=== PATIENT | female | born 1995 | race Caucasian/White ===

== ENCOUNTER 2017-07-20 14:05 | Outpatient (CLI) | payer MEDICAID ==
--- NOTE | 2017-08-20 10:11 | P.PCN ---
Date of Procedure: 08/20/17 Preoperative Diagnosis: Unwanted Contraceptive Implant Postoperative Diagnosis: Unwanted contraceptive implant Procedure(s) Performed: Removal of Nexplanon contraceptive implant Anesthesia: local Surgeon: Stan Doran Estimated Blood Loss (ml): 1 Pathology: none sent Condition: stable Disposition: same day Indications for Procedure: This was a 21-year-old G0 with an LMP of 08/12/2017 who is requesting the removal of her Nexplanon contraceptive implant. The implant was placed on 10/09/2016. This was her 2nd implant. Her 1st implant was removed on the day of her reinsertion. She has had some long periods with this implant. She has also experienced more acne. She would like to have it removed and plans on using condoms for control. She declines any other method of control at this time. Operative Findings: A 4 cm implant was removed in its entirety from the left arm. Description of Procedure: The procedure including possible risks was discussed with the patient and her mother. The Nexplanon implant was located in the left arm between the biceps and triceps muscles. The implant was superficial. The distal end was marked. Betadine was used to prep the area. Approximately 1 mL of 1% lidocaine was used for local anesthesia. After determination of adequate anesthesia, a small incision was made at the distal end of the implant with an 11 blade. The end of the implant was identified and removed with a hemostat. The implant was removed in its entirety without difficulty. The implant was measured and it measured 4 cm. Pressure was applied to the incision to obtain hemostasis. Antibiotic ointment was applied and a steri-strip was applied. A gauze dressing was applied. The patient tolerated the procedure well. The estimated blood loss was 1ml. There were no complications.
== END 2017-08-20 | disposition home or self-care (01) ==
LOC: CANPRECLI → WWCWWP 08-20 08:55
PROVIDERS: ATTEND Obstetrics & Gynecology
DX: Z53.9 Procedure and treatment not carried out, unspecified reason (principal)

== ENCOUNTER → 2019-01-18 | Outpatient (CLI) | payer MEDICAID ==
[2019-01-18 10:00] VITALS: BP 102/69; PULSE 81; RESP 20; TEMP 98.9; BMI 20.5
--- NOTE | 2019-01-18 10:41 | P.HPOB ---
History of Present Illness H&P Date: 01/18/19 Chief Complaint: The patient is here for her routine gynecologic exam and for control. This is a 23 year old G0 with an LMP of 12/17/2018. The patient is without gynecologic complaints. She has been using condoms for control. She is requesting to be started on control pills for control. She previously used control pills, but she states she was not as mature and had some difficulty taking the pill every day. She believes this would not be a problem at this time. She had a Nexplanon implant removed on 08/20/2017 because of menstrual irregularity. Her menses have been normal since then. Review of Systems The patient's weight has been stable over the last year. She denies respiratory, cardiac, or G.I. problems. 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 History of Any Multi-Drug Resistant Organisms: None Reported Past Surgical History: No Surgical Hx Reported Past Psychological History: No Psychological Hx Reported Smoking Status: Never smoker Past Alcohol Use History: Occasional (6 per month) Past Drug Use History: None Reported Additional History: She has been with her boyfriend since 2008. 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 - Past Family History Mother Family Medical History: No Reported History Medications and Allergies Home Medications Medication Instructions Recorded Confirmed Type No Known Home Medications 01/18/19 01/18/19 History Allergies Allergy/AdvReac Type Severity Reaction Status Date / Time No Known Allergies Allergy Unverified 01/18/19 09:56 Exam Vital Signs Temp Pulse Resp BP Pulse Ox 01/18/19 09:57 98.9 F 81 20 102/69 100 Intake and Output 01/17/19 01/18/19 01/18/19 22:59 06:59 14:59 Other: Weight 61.235 kg Height 5'8", weight 135 pounds, BMI 20.5. This is a well-developed well-nourished white female who is alert and oriented times 3 in no acute distress. HEENT: Within normal limits. NECK: Supple without mass or thyromegaly. CHEST AND LUNGS: Clear to auscultation. HEART: Regular rate and rhythm. BREASTS: Are without mass or discharge. AXILLARY EXAM: Negative for adenopathy. BACK: Negative for CVA tenderness. ABDOMEN: Soft, nontender, without palpable masses. PELVIC EXAM: Normal external genitalia. Cervix and vagina appear normal. There is no unusual discharge. There is no cervical motion tenderness. There is no evidence of prolapse. The uterus is midposition, nongravid size and nontender. There are no palpable adnexal masses or tenderness. RECTAL EXAM: deferred. EXTREMITIES: Nontender. IMPRESSION: 1. 23-year-old female with normal gynecologic exam who is using condoms for control. 2. The patient is requesting oral contraception for control. PLAN: 1. Pap smear was performed. 2. Self breast awareness was discussed with the patient. 3. GC and Chlamydia screening was obtained from the cervix. 4. The patient will be started on Tri-Sprintec one daily. She will start this on the 1st day of her next normal menstrual period. If she uses a Wednesday start method, she will use a backup method through the . The electronic prescription will be sent to [facility] in [place]. That pharmacy states her prescription can be transferred to the target [facility] pharmacy in [place]. 5. We have had a long discussion regarding control options. We also discussed possible side effects and risks with control pills. We discussed the increased risk for blood clots, such as DVT, PE, heart attack, and stroke. We also discussed the importance of taking the control pills daily around the same time every day. 6.She was advised to return in one year for her annual well woman exam. She will call if she has any problems.
[2019-01-19 13:54] LABS: C. trachomatis,PCR Negative (Neg,Equiv); Chlamydia trachomatis Source Cervix; N. gonorrhoeae,PCR Negative (Neg,Equiv); Neisseria Source Cervix
== END | disposition home or self-care (01) ==
LOC: WWCWWP 09:42
PROVIDERS: ATTEND Obstetrics & Gynecology
DX: Z11.3 Encounter for screening for infections with a predominantly sexual mode of transmission (principal)
CPT/HCPCS: 87491; 87591

== ENCOUNTER → 2020-07-16 | Outpatient (CLI) | payer BC ==
[2020-07-16 11:33] VITALS: BP 132/76; PULSE 75; RESP 18; TEMP 98.3
--- NOTE | 2020-07-16 12:06 | P.HPOB ---
History of Present Illness H&P Date: 07/16/20 Chief Complaint: The patient is here for her routine gynecologic exam. This is a 24-year-old G0 with an LMP of 06/28/2020. She is doing well on Tri- Sprintec oral contraception. She is without gynecologic complaints. She has no immediate plans to become . Review of Systems The patient has gained 4 pounds over the last year. She denies respiratory, cardiac, or G.I. problems. 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 History of Any Multi-Drug Resistant Organisms: None Reported Past Surgical History: No Surgical Hx Reported Past Psychological History: No Psychological Hx Reported Smoking Status: Never smoker Past Alcohol Use History: Occasional (2 per month) Past Drug Use History: None Reported Additional History: She has been with her boyfriend since 2008. 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 - Past Family History Mother Family Medical History: No Reported History Medications and Allergies Home Medications Medication Instructions Recorded Confirmed Type Norgestimate-Ethinyl Estradiol 1 each PO DAILY #84 tablet 07/16/20 Rx [Tri-Sprintec Tablet] Allergies Allergy/AdvReac Type Severity Reaction Status Date / Time No Known Allergies Allergy Verified 07/16/20 11:27 Exam Vital Signs Temp Pulse Resp BP Pulse Ox 07/16/20 11:29 98.3 F 75 18 132/76 96 Intake and Output 07/15/20 07/16/20 07/16/20 22:59 06:59 14:59 Other: Weight 63.049 kg Height 5 feet 8 inches, weight 139 pounds, BMI 21.1. This is a well-developed well-nourished white female who is alert and oriented times 3 in no acute distress. HEENT: Within normal limits. NECK: Supple without mass or thyromegaly. CHEST AND LUNGS: Clear to auscultation. HEART: Regular rate and rhythm. BREASTS: Are without mass or discharge. AXILLARY EXAM: Negative for adenopathy. BACK: Negative for CVA tenderness. ABDOMEN: Soft, nontender, without palpable masses. PELVIC EXAM: Normal external genitalia. Cervix and vagina appear normal. There is no unusual discharge. There is no evidence of prolapse. The uterus is midposition, nongravid size and nontender. There are no palpable adnexal masses or tenderness. RECTAL EXAM: Deferred. EXTREMITIES: Nontender. IMPRESSION: 1. 24-year-old female with normal gynecologic exam who is doing well on oral contraception. PLAN: 1. Pap smear was deferred since she had a normal one on 01/18/2019. 2. Self breast awareness was discussed with the patient. 3. Continue Tri-Sprintec oral contraception. The electronic prescription was sent to [facility] pharmacy on 4. She was advised to return in one year for her annual well woman exam.
== END | disposition home or self-care (01) ==
LOC: WWCWWP 11:14
PROVIDERS: ATTEND Obstetrics & Gynecology
DX: Z53.9 Procedure and treatment not carried out, unspecified reason (principal)

== ENCOUNTER → 2021-09-30 | Outpatient (CLI) | payer BC ==
[2021-09-30 15:16] VITALS: BP 126/75; PULSE 95; RESP 16; TEMP 99.6
--- NOTE | 2021-09-30 15:49 | P.HPOB ---
History of Present Illness H&P Date: 09/30/21 Chief Complaint: The patient is here for her routine gynecologic exam. This is a 25-year-old G0 with an LMP of 09/22/2021. The patient continues to use oral contraception for control and is without gynecologic complaints. She has no immediate plans to become , but there is some thought that she may want to do get in the upcoming years. She is without complaints. Review of Systems The patient's weight has been stable over the last year. She denies respiratory, cardiac, or G.I. problems. 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 History of Any Multi-Drug Resistant Organisms: None Reported Past Surgical History: No Surgical Hx Reported Past Psychological History: No Psychological Hx Reported Smoking Status: Never smoker Past Alcohol Use History: Rare (2 per year) Past Drug Use History: Marijuana (Infrequent use.) Additional History: She has been with her boyfriend since 2008. They live together. She works remotely for a [employer] in [place], but lives in [place]. - Past Family History Mother Family Medical History: No Reported History Medications and Allergies Home Medications Medication Instructions Recorded Confirmed Type Norgestimate-Ethinyl Estradiol 1 each PO DAILY #84 tablet 07/16/20 09/30/21 Rx [Tri-Sprintec Tablet] Allergies Allergy/AdvReac Type Severity Reaction Status Date / Time No Known Allergies Allergy Verified 09/30/21 15:11 Exam Vital Signs Temp Pulse Resp BP Pulse Ox 09/30/21 15:12 99.6 F 95 16 126/75 100 Intake and Output 09/30/21 09/30/21 09/30/21 06:59 14:59 22:59 Other: Weight 63.957 kg Height 5 feet 7 inches, weight 141 pounds, BMI 22.1. This is a well-developed well-nourished white female who is alert and oriented times 3 in no acute distress. HEENT: Within normal limits. NECK: Supple without mass or thyromegaly. CHEST AND LUNGS: Clear to auscultation. HEART: Regular rate and rhythm. BREASTS: Are without mass or discharge. AXILLARY EXAM: Negative for adenopathy. BACK: Negative for CVA tenderness. ABDOMEN: Soft, nontender, without palpable masses. PELVIC EXAM: Normal external genitalia. Cervix and vagina appear normal. There is no unusual discharge. There is no evidence of prolapse. The uterus is midposition, nongravid size and nontender. There are no palpable adnexal masses or tenderness. RECTAL EXAM: Deferred. EXTREMITIES: Nontender. IMPRESSION: 1. 25-year-old female with normal gynecologic exam who is doing well on oral contraception. PLAN: 1. Pap smear (cytology only) was performed. 2. Self breast awareness was discussed with the patient. We have also discussed symptoms associated with inflammatory breast cancer. 3. The conception planning was discussed. I recommended that she take a daily multivitamin prior to actively attempting . The multivitamin should contain folic acid. She understands this may help decrease the risk for defects, if she does get . She will get in the habit of keeping a menstrual calendar. 4. The electronic prescription for Tri-Sprintec will be sent to [facility] pharmacy on . She was advised to return in one year for her annual well woman exam.
== END ==
LOC: WWCWWP 14:36
PROVIDERS: ATTEND Obstetrics & Gynecology
DX: Z01.419 Encounter for gynecological examination (general) (routine) without abnormal findings (principal); Z79.3 Long term (current) use of hormonal contraceptives

== ENCOUNTER → 2023-06-02 | Outpatient (CLI) | payer OTHER ==
[2023-06-02 16:14] LABS: HCT 37.3 % (37.2-46.3); HGB 12.2 d/dL (12.0-15.0); MCH 30.9 pg (27.0-32.0); MCHC 32.7 d/dL (32.0-37.0); MCV 94.4 FL (80.0-97.0); Mean Platelet Volume 11.1 FL (9.5-12.2); NRBC Per 100 WBC 0 X 10*3/uL (0.00-0.01); Platelet Count 234 X 10*3/uL (140-440); RBC 3.95 X 10*6/uL (4.10-5.20); RDW 12.1 % (11.5-14.5); WBC 4.73 X 10*3/uL (4.50-10.00)
[2023-06-02 16:16] LABS: ALT 18 U/L (8-44); AST 18 U/L (13-35); Albumin 4.2 d/dL (3.8-4.9); Albumin/Globulin Ratio 1.45 Ratio (1.60-3.17); Alkaline Phosphatase 75 U/L (41-126); Blood Urea Nitrogen 13.5 mg/dL (9.0-27.0); Calcium 9.1 mg/dL (8.7-10.3); Carbon Dioxide 24.2 mmol/L (21.6-31.8); Chloride 104 mmol/L (96-109); Chol/HDL Ratio 2.01 Ratio; Globulin 2.9 d/dL (1.6-3.3); Glucose 85 mg/dL (70-110); LDL Cholesterol,Calculated 63.2 mg/dL (0.0-131.0); Potassium 4.5 mmol/L (3.5-5.5); Sodium 139 mmol/L (135-145); Total Bilirubin 0.4 mg/dL (0.3-1.2); Total Protein 7.1 d/dL (6.2-8.2); VLDL Calculation 15.78 mg/dL (5.00-40.00)
== END | disposition home or self-care (01) ==
LOC: LABWHC1 09:18
PROVIDERS: ATTEND Family Medicine
DX: Z13.220 Encounter for screening for lipoid disorders (principal); R53.83 Other fatigue; Z83.49 Family history of other endocrine, nutritional and metabolic diseases
CPT/HCPCS: 36415; 80053; 80061; 83036; 84443; 85027

== ENCOUNTER → 2023-10-26 | Outpatient (CLI) | payer OTHER ==
[2023-10-26 16:40] VITALS: BP 126/72; PULSE 97; RESP 16; TEMP 98.7
--- NOTE | 2023-10-26 17:11 | P.HPOB ---
History of Present Illness H&P Date: 10/26/23 Chief Complaint: The patient is here for her routine gynecologic exam. This is a 27-year-old G0 with an LMP of 10/11/2023. She states she is continues to do well on oral contraception. She is contemplating attempting in the next few years, but does not think it will be in the upcoming year. She got on 04/09/2023. She has infrequently used the Kenalog cream for vulvar pruritus. She is currently without gynecologic complaints. Review of Systems The patient has gained 21 pounds over the last year. She denies respiratory, cardiac, or G.I. problems. 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 History of Any Multi-Drug Resistant Organisms: None Reported Past Surgical History: No Surgical Hx Reported Past Psychological History: No Psychological Hx Reported Smoking Status: Never smoker Past Alcohol Use History: Rare (4 drinks per year.) Past Drug Use History: Marijuana Additional Drug Use History / Comment(s): Infrequent Marijuana use in the past. She denies use after 2022. Additional History: She got in 2022 and works for a company in [place] remotely. - Past Family History Mother Family Medical History: No Reported History Medications and Allergies Home Medications Medication Instructions Recorded Confirmed Type Triamcinolone 0.1% Cream [Kenalog 1 applicatio TOPICAL BID PRN #30 gm 10/28/22 10/26/23 Rx 0.1% Cream] norgestimate-ethinyl estradioL 1 each PO DAILY #84 tablet 10/28/22 10/26/23 Rx [Tri-Sprintec Tablet] Allergies Allergy/AdvReac Type Severity Reaction Status Date / Time No Known Allergies Allergy Verified 10/26/23 16:15 Exam Vital Signs Temp Pulse Resp BP Pulse Ox 10/26/23 16:16 98.7 F 97 16 126/72 98 Intake and Output 10/26/23 10/26/23 10/26/23 06:59 14:59 22:59 Other: Weight 71.668 kg Height 5 feet 8 inches, weight 158 pounds, BMI 24.0. This is a well-developed well-nourished white female who is alert and oriented times 3 in no acute distress. HEENT: Within normal limits. NECK: Supple without mass or thyromegaly. CHEST AND LUNGS: Clear to auscultation. HEART: Regular rate and rhythm. BREASTS: Are without mass or discharge. AXILLARY EXAM: Negative for adenopathy. BACK: Negative for CVA tenderness. ABDOMEN: Soft, nontender, without palpable masses. PELVIC EXAM: Normal external genitalia. Cervix and vagina appear normal. There is no unusual discharge. There is no evidence of prolapse. The uterus is midposition, nongravid size and nontender. There are no palpable adnexal masses or tenderness. RECTAL EXAM: Deferred. EXTREMITIES: Nontender. IMPRESSION: 1. 27-year-old gynecologically healthy female doing well on oral contraception. 2. Contemplating attempting in the next few years. PLAN: 1. Pap smear was performed. 2. Self breast awareness was discussed with the patient. We have also discussed symptoms associated with inflammatory breast cancer. 3. Continue oral contraception at this time. The electronic prescription for Tri-Sprintec will be sent to [facility] pharmacy on . 4. Preconception planning was discussed. I have stressed the importance of taking a daily multivitamin with folic acid. I have also recommended keeping a menstrual calendar and trying to minimize medications, being aware that surgical complications can affect and possibly even caused defects. 5. She still has the Kenalog cream which she can use infrequently as needed. 6. She was advised to return in one year for her annual well woman exam.
== END ==
LOC: WWCWWP 15:58
PROVIDERS: ATTEND Obstetrics & Gynecology
DX: Z04.89 Encounter for examination and observation for other specified reasons (principal); F12.90 Cannabis use, unspecified, uncomplicated

== ENCOUNTER → 2024-07-28 | Outpatient (CLI) | payer OTHER ==
[2024-07-28 10:33] LABS: Basophils # (A) 0.03 X 10*3/uL (0.00-0.10); Basophils % (A) 0.6 %; Eosinophils # (A) 0.07 X 10*3/uL (0.04-0.35); Eosinophils % (A) 1.3 %; HCT 37.6 % (37.2-46.3); HGB 12.6 g/dL (12.0-15.0); Lymphocytes # (A) 2.39 X 10*3/uL (0.90-5.00); Lymphocytes % (A) 45.9 %; MCH 31.8 pg (27.0-32.0); MCHC 33.5 g/dL (32.0-37.0); MCV 94.9 FL (80.0-97.0); Monocytes # (A) 0.28 X 10*3/uL (0.20-1.00); Monocytes % (A) 5.4 %; NRBC Per 100 WBC 0 X 10*3/uL (0.00-0.01); Neutrophils # (A) 2.43 X 10*3/uL (1.80-7.70); Neutrophils % (A) 46.6 %; Platelet Count 229 X 10*3/uL (140-440); RBC 3.96 X 10*6/uL (4.10-5.20); RDW 12.1 % (11.5-14.5); WBC 5.21 X 10*3/uL (4.50-10.00)
[2024-07-28 11:11] LABS: ALT 15 U/L (8-44); AST 21 U/L (13-35); Albumin 4.4 g/dL (3.8-4.9); Albumin/Globulin Ratio 1.83 Ratio (1.60-3.17); Alkaline Phosphatase 89 U/L (41-126); Blood Urea Nitrogen 14.4 mg/dL (9.0-27.0); Calcium 9.1 mg/dL (8.7-10.3); Carbon Dioxide 27.1 mmol/L (21.6-31.8); Chloride 103 mmol/L (96-109); Globulin 2.4 g/dL (1.6-3.3); Glucose 90 mg/dL (70-110); Potassium 4.1 mmol/L (3.5-5.5); Sodium 141 mmol/L (135-145); Total Bilirubin 0.7 mg/dL (0.3-1.2); Total Protein 6.8 g/dL (6.2-8.2)
[2024-07-29 05:10] LABS: Chol/HDL Ratio 2.91 Ratio; LDL Cholesterol,Calculated 157.7 mg/dL (0.0-131.0); VLDL Calculation 16.18 mg/dL (5.00-40.00)
== END | disposition home or self-care (01) ==
LOC: LABWHC1 07:10
PROVIDERS: ATTEND Family Medicine
DX: R00.2 Palpitations (principal)
CPT/HCPCS: 36415; 80053; 80061; 82306; 82607; 84439; 84443; 85025

== ENCOUNTER → 2024-08-04 | Outpatient (CLI) | payer OTHER ==
[2024-08-04 15:57] LABS: Thyroid Peroxidase Antibodies 11.7 U/mL (0.0-33.0)
[2024-08-04 15:58] LABS: T4, Free (Free Thyroxine) 1.21 ng/dL (0.80-1.80)
== END | disposition home or self-care (01) ==
LOC: LABWHC1 08:41
PROVIDERS: ATTEND Family Medicine
DX: E03.9 Hypothyroidism, unspecified (principal)
CPT/HCPCS: 36415; 84432; 84436; 84439; 84443; 84445; 86376

== ENCOUNTER → 2024-08-17 | Outpatient (CLI) | payer OTHER ==
--- NOTE | 2024-08-17 20:28 | US ---
EXAMINATION TYPE: US thyroid st tissue head/neck DATE OF EXAM: 08/17/2024 COMPARISON: NONE CLINICAL INDICATION: Female, 28 years old with history of Abnormal Thyroid labs E039; Abnormal labs. TECHNIQUE: Grayscale and color Doppler imaging of the thyroid gland. FINDINGS: GLAND SIZE: Right Lobe: 5.1 x 1.5 x 1.4 cm Overall Parenchyma: homogeneous Left Lobe: 5.3 x 1.6 x 1.3 cm Overall Parenchyma: homogeneous Isthmus Thickness: 0.4 cm NODULES RIGHT: # of nodules measured on right: 0 LEFT: # of nodules measured on left: 0 ISTHMUS: # of nodules measured in the isthmus: 0 Bilateral neck scanned, no evidence of lymphadenopathy. IMPRESSION: Mild thyromegaly. No solid or cystic nodules. 2017 ACR TI-RADS LEVEL: TR-RADS 1 - BENIGN: No FNA *Highest TI-RADS level nodule reported [email or web address] [facility], , 08/17/2024 8:26 PM
== END | disposition home or self-care (01) ==
LOC: RADUSWWP 16:16
PROVIDERS: ATTEND Family Medicine
DX: E03.9 Hypothyroidism, unspecified (principal)
CPT/HCPCS: 76536

== ENCOUNTER → 2024-10-27 | Outpatient (CLI) | payer OTHER ==
[2024-10-28 02:08] LABS: T4, Free (Free Thyroxine) 1.06 ng/dL (0.80-1.80)
== END | disposition home or self-care (01) ==
LOC: LABWHC1 16:15
PROVIDERS: ATTEND Family Medicine
DX: R76.8 Other specified abnormal immunological findings in serum (principal)
CPT/HCPCS: 36415; 84439; 84443

== ENCOUNTER → 2024-12-01 | Outpatient (CLI) | payer OTHER ==
[2024-12-01 18:10] LABS: Basophils # (A) 0.02 X 10*3/uL (0.00-0.10); Basophils % (A) 0.5 %; Eosinophils # (A) 0.05 X 10*3/uL (0.04-0.35); Eosinophils % (A) 1.2 %; Lymphocytes % (A) 37.3 %; MCH 30.5 pg (27.0-32.0); MCHC 32.5 g/dL (32.0-37.0); MCV 93.9 FL (80.0-97.0); Mean Platelet Volume 10.9 FL (9.5-12.2); Monocytes # (A) 0.23 X 10*3/uL (0.20-1.00); Monocytes % (A) 5.7 %; NRBC Per 100 WBC 0 X 10*3/uL (0.00-0.01); Neutrophils # (A) 2.21 X 10*3/uL (1.80-7.70); Neutrophils % (A) 55.1 %; Platelet Count 248 X 10*3/uL (140-440); RBC 4.26 X 10*6/uL (4.10-5.20); WBC 4.02 X 10*3/uL (4.50-10.00)
[2024-12-01 18:43] LABS: ALT 19 U/L (8-44); AST 24 U/L (13-35); Albumin 4.2 g/dL (3.8-4.9); Albumin/Globulin Ratio 1.31 Ratio (1.60-3.17); Alkaline Phosphatase 77 U/L (41-126); BUN/Creat Ratio 13.33 Ratio (12.00-20.00); Calcium 9.2 mg/dL (8.7-10.3); Chloride 106 mmol/L (96-109); Chol/HDL Ratio 2.22 Ratio; Globulin 3.2 g/dL (1.6-3.3); Glucose 85 mg/dL (70-110); LDL Cholesterol,Calculated 90.2 mg/dL (0.0-131.0); Potassium 4.4 mmol/L (3.5-5.5); Sodium 142 mmol/L (135-145); Total Bilirubin 0.4 mg/dL (0.3-1.2); Total Protein 7.4 g/dL (6.2-8.2)
== END | disposition home or self-care (01) ==
LOC: LABWHC1 12:34
PROVIDERS: ATTEND Family Medicine
DX: E78.5 Hyperlipidemia, unspecified (principal)
CPT/HCPCS: 36415; 80053; 80061; 82306; 85025

== ENCOUNTER → 2024-12-04 | Outpatient (CLI) | payer OTHER | END | disposition home or self-care (01) | LOC: LABWHC1 13:10 | PROVIDERS: ATTEND Family Medicine | DX: E78.5 Hyperlipidemia, unspecified (principal) | CPT/HCPCS: 36415; 83036 ==

== ENCOUNTER → 2025-01-03 | Outpatient (CLI) | payer OTHER ==
--- NOTE | 2025-01-03 18:51 | CT ---
EXAMINATION TYPE: CT soft tissue neck wo/w con DATE OF EXAM: 01/03/2025 6:17 PM COMPARISON: Thyroid ultrasound 08/17/2024.. CLINICAL INDICATION: Female, 29 years old with history of J39.8 Compression of trachea, R59.0 Submand ibular; PHH, throat pain x 2 years, pain has increased in the past 2 months TECHNIQUE: Standard enhanced CT of the neck. Axial sections with coronal and sagittal reformats were obtained. Contrast used:100 ml mL of Isovue 300 without and with IV Contrast, (None if empty) Oral contrast used: (None if empty) CT DLP: 629.80 mGycm, Automated exposure control for dose reduction was used. FINDINGS: Brain: Visualized portions are grossly unremarkable. Orbits: Unremarkable Sinuses: Grossly unremarkable. Spaces of the neck: Clear and symmetric. Musculoskeletal: No acute osseous pathology. Lymph nodes: Multiple nonenlarged lymph nodes are seen along both anterior chains of the neck. Vascular structures: Visualized major arteries are patent without evidence of aneurysm. Thoracic Inlet/airway: Airway is patent. The lung apices are clear. Soft tissues/Thyroid: Thyroid and remainder of the soft tissues are unremarkable. Other: none. IMPRESSION: No definite evidence for abscess or significant abnormality. [facility], , 01/03/2025 6:49 PM
== END | disposition home or self-care (01) ==
LOC: RADCTMAIN 16:51
PROVIDERS: ATTEND Family Medicine
DX: J39.8 Other specified diseases of upper respiratory tract (principal); E04.9 Nontoxic goiter, unspecified; R59.0 Localized enlarged lymph nodes
CPT/HCPCS: 70492; Q9967

== ENCOUNTER → 2025-02-20 | Outpatient (CLI) | payer OTHER ==
[2025-02-20 16:27] VITALS: BP 111/73; PULSE 84; RESP 16; TEMP 98
--- NOTE | 2025-02-20 16:45 | P.HPOB ---
History of Present Illness H&P Date: 02/20/25 Chief Complaint: The patient is here for her routine gynecologic exam. This is a 29-year-old G0 with an LMP of 02/19/2025. The patient continues to do well on oral contraception. She is without gynecologic complaints. She states she still is considering attempting but is not sure when she would like to do this. Review of Systems The patient's weight has been stable over the last year. She denies respiratory, cardiac, or G.I. problems. 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 History of Any Multi-Drug Resistant Organisms: None Reported Past Surgical History: No Surgical Hx Reported Past Psychological History: No Psychological Hx Reported Smoking Status: Never smoker Past Alcohol Use History: Rare (Drinks per year.) Past Drug Use History: Marijuana (Infrequent use, maybe once during the past year.) Additional Drug Use History / Comment(s): Infrequent Marijuana use in the past. She denies use after 2022. Additional History: She has been since 2022 and works for a [employer] in [place] remotely. - Past Family History Mother Family Medical History: No Reported History Medications and Allergies Home Medications Medication Instructions Recorded Confirmed Type Triamcinolone 0.1% Cream [Kenalog 1 applicatio TOPICAL BID PRN #30 gm 10/28/22 02/20/25 Rx 0.1% Cream] norgestimate-ethinyl estradioL 1 each PO DAILY #84 tablet 10/26/23 02/20/25 Rx [Tri-Sprintec Tablet] Calcium Carb/Magnesium Ox,Carb 1 tab PO DAILY 02/20/25 02/20/25 History [Matt-Mag 500-250 MG Chewable] Cholecalciferol (Vitd3)/Vit K2 1 each PO DAILY 02/20/25 02/20/25 History [Vit D3-Vit K2 125-100 Mcg Sfgl] Loratadine [Claritin] 10 mg PO DAILY 02/20/25 02/20/25 History [place]-3/Dha/Epa/Fish Oil [[place]-3 1 each PO DAILY 02/20/25 02/20/25 History Fish Oil 1,000 mg Sfgl] Vit No.179/Iron/Folic 1 each PO DAILY 02/20/25 02/20/25 History [ Tablet] Allergies Allergy/AdvReac Type Severity Reaction Status Date / Time No Known Allergies Allergy Verified 02/20/25 16:18 Exam Vital Signs Temp Pulse Resp BP Pulse Ox 02/20/25 16:22 98 F 84 16 111/73 99 Intake and Output 02/20/25 02/20/25 02/20/25 06:59 14:59 22:59 Other: Weight 71.668 kg Height 5 feet 8 inches, weight 158 pounds, BMI 24.0. This is a well-developed well-nourished white female who is alert and oriented times 3 in no acute distress. HEENT: Within normal limits. NECK: Supple without mass or thyromegaly. CHEST AND LUNGS: Clear to auscultation. HEART: Regular rate and rhythm. BREASTS: Are without mass or discharge. AXILLARY EXAM: Negative for adenopathy. BACK: Negative for CVA tenderness. ABDOMEN: Soft, nontender, without palpable masses. PELVIC EXAM: Normal external genitalia. Cervix and vagina appear normal. There is a small amount of menstrual blood in the vagina. There is no unusual discharge. There is no evidence of prolapse. The uterus is midposition, nongravid size and nontender. There are no palpable adnexal masses or tenderness. RECTAL EXAM: Deferred. EXTREMITIES: Nontender. IMPRESSION: 1. 29-year-old female doing well on oral contraception, with normal gynecologic exam. 2. Contemplating attempting in the upcoming years. PLAN: 1. Pap smear was deferred since she had a negative Pap smear on 10/26/2023. We will plan on doing a Pap smear cotest in 1 year. 2. Self breast awareness was discussed with the patient. We have also discussed symptoms associated with inflammatory breast cancer. 3. Continue oral contraception daily. The electronic prescription for Tri- Sprintec will be sent to [facility] pharmacy on . She will continue to take 1 daily. 4. Have again discussed preconception planning when she decides to attempt . I recommend that she take a daily multivitamin with folic acid. She will keep a menstrual calendar and watch what she puts into her body knowing that different things including [id number] medications can affect the . 5. She was advised to return in one year for her annual well woman exam.
== END ==
LOC: WWCWWP 15:58
PROVIDERS: ATTEND Obstetrics & Gynecology
DX: Z01.419 Encounter for gynecological examination (general) (routine) without abnormal findings (principal)

== ENCOUNTER → 2025-02-28 | Outpatient (CLI) | payer OTHER ==
[2025-03-01 02:29] LABS: T4, Free (Free Thyroxine) 1.09 ng/dL (0.80-1.80)
== END | disposition home or self-care (01) ==
LOC: LABWHC1 16:31
PROVIDERS: ATTEND Internal Medicine
DX: E07.81 Sick-euthyroid syndrome (principal); R79.89 Other specified abnormal findings of blood chemistry
CPT/HCPCS: 36415; 84439; 84443